=== PATIENT | female | born 1960 | race Caucasian/White ===

== ENCOUNTER 2024-06-12 11:45 | Emergency (ER) | payer OTHER ==
[2024-06-12 12:50] LABS: BASOPHILS PERCENT AUTO 0.1 % (0.2-1.2); HEMATOCRIT 39.9 % (33.0-47.0); HEMOGLOBIN 13.8 g/dL (12.0-16.0); IMMATURE GRAN ABSOLUTE AUTO 0.04 x10^3/uL (0.00-0.07); LYMPHOCYTES ABSOLUTE AUTO 0.3 x10^3/uL (1.0-4.8); MEAN CORPUSCULAR HEMOGLOBIN 31.2 pg (26.0-32.0); MEAN CORPUSCULAR HGB CONC 34.6 g/dL (32.0-36.0); MEAN CORPUSCULAR VOLUME 90.3 fL (78.0-93.0); MONOCYTES ABSOLUTE AUTO 0.9 x10^3/uL (0.0-0.8); MONOCYTES PERCENT AUTO 7.9 % (2.0-11.0); NEUTROPHILS ABSOLUTE AUTO 9.6 x10^3/uL (1.8-7.7); NEUTROPHILS PERCENT AUTO 88.6 % (50.0-80.0); PLATELET COUNT,PLT 143 x10^3/uL (130-400); RED BLOOD CELL COUNT 4.42 x10^6/uL (4.00-5.50); WHITE BLOOD CELL COUNT,WBC 10.8 x10^3/uL (4.0-10.0)
[2024-06-12 13:06] LABS: A/G RATIO 0.86; ALANINE AMINOTRANSFERASE,ALT 47 U/L (14-59); ALBUMIN 3.2 g/dL (3.4-5.0); ALKALINE PHOSPHATASE 99 U/L (46-116); ASPARTATE AMNIOTRANSFERASE,AST 32 U/L (15-37); BILIRUBIN TOTAL 1.4 mg/dL (0.2-1.0); BLOOD UREA NITROGEN,BUN 16 mg/dL (7-18); CALCIUM 9.3 mg/dL (8.5-10.1); CARBON DIOXIDE,CO2 24 mmol/L (21-32); CHLORIDE,CL 105 mmol/L (98-107); CREATININE 0.7 mg/dL (0.55-1.02); GLUCOSE RANDOM 124 mg/dL (70-99); POTASSIUM,K 3.2 mmol/L (3.5-5.1); PROTEIN TOTAL,TP 6.9 g/dL (6.4-8.2); SODIUM,NA 141 mmol/L (136-145)
[2024-06-12] MEDS: HYDROmorphone 1 MG/ML Syringe SUBCUT ONE (13:10)
[2024-06-12 13:12] LABS: ANION GAP 15.2 mmol/L (5-15); ESTIMATED GFR 98 mL/min (>=60)
[2024-06-12 13:15] LABS: C-REACTIVE PROTEIN 59.89 mg/dL (<=0.50)
[2024-06-12] MEDS: Take Home: Acetaminophen/HYDROcodone 325-10 MG, 5 Tab Pack PO ONE (14:25)
[2024-06-13] MEDS: Take Home: Acetaminophen/HYDROcodone 325-5 MG, 5 Tab Pack PO ONE (11:10)
== END 2024-06-12 15:50 | disposition home or self-care (01) ==
LOC: VM.ED 11:45
DX: M19.011 Primary osteoarthritis, right shoulder (principal); M54.50 Low back pain, unspecified; M84.47 Pathological fracture, ankle, foot and toes
CPT/HCPCS: 36415; 72100; 73030; 73610; 80053; 85025; 86140; 96372; 99284; A9270; J1170; 93010

== ENCOUNTER 2024-06-14 16:14 | Observation (INO) | payer OTHER ==
[2024-06-14] MEDS ORDERED: Sodium Chloride 0.9% 10 ML Syringe FLUSH PRN ×2 (16:48→19:39)
[2024-06-14] MEDS: HYDROmorphone 1 MG/ML Syringe IVPUSH ONE (17:00)
[2024-06-14] MEDS ORDERED: Zolpidem 5 MG Tab PO PRN (19:39)
[2024-06-14] MEDS ORDERED: Ondansetron 4 MG Tab.DIS PO PRN (19:39)
[2024-06-14] MEDS ORDERED: Ondansetron 4 MG/2 ML SDV IV PRN (19:39)
[2024-06-14] MEDS ORDERED: hydrOXYzine HCl 25 MG Tab PO PRN (23:18)
[2024-06-15] MEDS: hydrOXYzine HCl 25 MG Tab PO PRN (00:24)
[2024-06-15] MEDS: Acetaminophen 325 MG Tab PO PRN (09:18)
[2024-06-15] MEDS: Ketorolac 30 MG/ML SDV IM PRN (09:20)
[2024-06-15] MEDS: HYDROmorphone 1 MG/ML Syringe IVPUSH PRN (16:21)
[2024-06-15 21:11] LABS: EOSINOPHILS PERCENT AUTO 0.1 % (0.0-4.0); HEMATOCRIT 33.9 % (33.0-47.0); HEMOGLOBIN 12.2 g/dL (12.0-16.0); IMMATURE GRAN ABSOLUTE AUTO 0.18 x10^3/uL (0.00-0.07); LYMPHOCYTES ABSOLUTE AUTO 0.5 x10^3/uL (1.0-4.8); LYMPHOCYTES PERCENT AUTO 3.7 % (25.0-50.0); MEAN CORPUSCULAR VOLUME 86.3 fL (78.0-93.0); MONOCYTES ABSOLUTE AUTO 0.9 x10^3/uL (0.0-0.8); MONOCYTES PERCENT AUTO 7.3 % (2.0-11.0); NEUTROPHILS ABSOLUTE AUTO 11.3 x10^3/uL (1.8-7.7); NEUTROPHILS PERCENT AUTO 87.5 % (50.0-80.0); RED BLOOD CELL COUNT 3.93 x10^6/uL (4.00-5.50); WHITE BLOOD CELL COUNT,WBC 12.9 x10^3/uL (4.0-10.0)
[2024-06-15 21:20] LABS: PLATELET COUNT,PLT 99 x10^3/uL (130-400)
[2024-06-15 21:35] LABS: CALCIUM 8.9 mg/dL (8.5-10.1); EST CRCL DRUG DOSING (CG) 62.96 mL/min
[2024-06-15 21:36] LABS: ANION GAP 10.3 mmol/L (5-15); POTASSIUM,K 2.3 mmol/L (3.5-5.1)
[2024-06-15] MEDS: Baclofen 10 MG Tab PO SCH (21:38)
[2024-06-15 21:44] LABS: CREATININE 0.8 mg/dL (0.55-1.02)
[2024-06-15 21:46] LABS: C-REACTIVE PROTEIN 31.81 mg/dL (<=0.50)
[2024-06-15] MEDS: Potassium Chloride 20 MEQ Tab.ER PO ONE (22:13)
[2024-06-15] MEDS: Potassium Chloride Riders 20 MEQ in Premix Bag 1 BAG IV SCH (22:20)
[2024-06-15] MEDS: Clindamycin Phosphate in D5W 600 MG in Premix Bag 1 BAG IV SCH (22:21)
[2024-06-16 06:49] LABS: BASOPHILS PERCENT AUTO 0.1 % (0.2-1.2); EOSINOPHILS PERCENT AUTO 0.1 % (0.0-4.0); HEMATOCRIT 33.6 % (33.0-47.0); HEMOGLOBIN 11.9 g/dL (12.0-16.0); IMMATURE GRAN ABSOLUTE AUTO 0.28 x10^3/uL (0.00-0.07); LYMPHOCYTES ABSOLUTE AUTO 0.7 x10^3/uL (1.0-4.8); LYMPHOCYTES PERCENT AUTO 4.8 % (25.0-50.0); MEAN CORPUSCULAR HEMOGLOBIN 30.6 pg (26.0-32.0); MEAN CORPUSCULAR HGB CONC 35.4 g/dL (32.0-36.0); MEAN CORPUSCULAR VOLUME 86.4 fL (78.0-93.0); MONOCYTES ABSOLUTE AUTO 0.9 x10^3/uL (0.0-0.8); MONOCYTES PERCENT AUTO 6.7 % (2.0-11.0); NEUTROPHILS ABSOLUTE AUTO 12.2 x10^3/uL (1.8-7.7); NEUTROPHILS PERCENT AUTO 86.3 % (50.0-80.0); PLATELET COUNT,PLT 105 x10^3/uL (130-400); RED BLOOD CELL COUNT 3.89 x10^6/uL (4.00-5.50); WHITE BLOOD CELL COUNT,WBC 14.1 x10^3/uL (4.0-10.0)
[2024-06-16 07:03] LABS: CALCIUM 8.9 mg/dL (8.5-10.1); CREATININE 0.7 mg/dL (0.55-1.02); EST CRCL DRUG DOSING (CG) 71.96 mL/min
[2024-06-16 07:16] LABS: C-REACTIVE PROTEIN 31.54 mg/dL (<=0.50)
== END 2024-06-16 18:45 | disposition short-term general hospital (02) ==
LOC: VM.ED 16:14 → VM.MS 19:19
PROVIDERS: ADMIT Nurse Practitioner Family; ATTEND Nurse Practitioner Family
DX: G89.29 Other chronic pain (principal); M54.9 Dorsalgia, unspecified; M25.552 Pain in left hip; M25.511 Pain in right shoulder; L03.116 Cellulitis of left lower limb; F17.210 Nicotine dependence, cigarettes, uncomplicated
CPT/HCPCS: 36415; 72170; 80048; 83605; 83880; 84145; 85025; 86140; 96365; 96366; 96372; 96375; 96376; 99284; A9270; G0378; J1170; J1885; J3480; J3490; 96374; 99223; 99233; 99239

== ENCOUNTER 2024-07-08 16:37 | Emergency (ER) | payer OTHER ==
[2024-07-08 17:24] LABS: LACTIC ACID 0.7 mmol/L (0.4-2.0)
[2024-07-08] MEDS: Iopamidol 755 Mg/ML 100 ML Bottle IVPUSH ONE (17:51)
[2024-07-08 19:02] LABS: APPEARANCE,URINE SLIGHTLY CLOUDY (CLEAR); BACTERIA,URINE OCCASIONAL /HPF (NOT SEEN); BILIRUBIN,URINE NEGATIVE (NEGATIVE); COLOR,URINE YELLOW (YELLOW); GLUCOSE,URINE NEGATIVE (NEGATIVE); KETONES,URINE NEGATIVE (NEGATIVE); LEUKOCYTE ESTERASE,URINE NEGATIVE (NEGATIVE); MUCUS,URINE OCCASIONAL /LPF (NOT SEEN); NITRITE,URINE NEGATIVE (NEGATIVE); OCCULT BLOOD,URINE MODERATE (NEGATIVE); PROTEIN,URINE 100 mg/dL (NEGATIVE); SQUAMOUS EPITHELIAL CELLS,UR FEW /HPF (NOT SEEN); UROBILINOGEN,URINE 0.2 EU/dL (0.2); WBC,URINE 0-5 /HPF (NOT SEEN)
[2024-07-08] MEDS: Furosemide 20 MG/2 ML VIAL IV ONE (22:51)
== END 2024-07-08 21:03 | disposition short-term general hospital (02) ==
LOC: VM.ED 16:37
DX: I50.9 Heart failure, unspecified (principal); R79.1 Abnormal coagulation profile; R79.89 Other specified abnormal findings of blood chemistry; Z79.899 Other long term (current) drug therapy; Z79.2 Long term (current) use of antibiotics; Z79.891 Long term (current) use of opiate analgesic
CPT/HCPCS: 71275; 81001; 83605; 83880; 84484; 86850; 86900; 86901; 93005; 93010; 96374; 99284; 99285-25; J1940; Q9967

== ENCOUNTER 2024-09-08 17:42 | Emergency (ER) | payer OTHER ==
[2024-09-08 18:28] LABS: BASOPHILS PERCENT AUTO 0.8 % (0.2-1.2); EOSINOPHILS ABSOLUTE AUTO 0.1 x10^3/uL (0.0-0.5); EOSINOPHILS PERCENT AUTO 2.7 % (0.0-4.0); HEMATOCRIT 31.7 % (33.0-47.0); HEMOGLOBIN 9.9 g/dL (12.0-16.0); IMMATURE GRAN ABSOLUTE AUTO 0.01 x10^3/uL (0.00-0.07); LYMPHOCYTES ABSOLUTE AUTO 0.8 x10^3/uL (1.0-4.8); LYMPHOCYTES PERCENT AUTO 16.3 % (25.0-50.0); MEAN CORPUSCULAR HEMOGLOBIN 22.7 pg (26.0-32.0); MEAN CORPUSCULAR HGB CONC 31.2 g/dL (32.0-36.0); MEAN CORPUSCULAR VOLUME 72.5 fL (78.0-93.0); NEUTROPHILS ABSOLUTE AUTO 2.9 x10^3/uL (1.8-7.7); PLATELET COUNT,PLT 330 x10^3/uL (130-400); RED BLOOD CELL COUNT 4.37 x10^6/uL (4.00-5.50); WHITE BLOOD CELL COUNT,WBC 4.8 x10^3/uL (4.0-10.0)
[2024-09-08 18:41] LABS: INR 1.2 (0.9-1.1); PROTHROMBIN TIME 11.6 SEC (8.9-11.5); PTT,PARTIAL THROMBOPLSTIN TIME 38.7 SEC (21.9-33.8)
[2024-09-08 18:48] LABS: LACTIC ACID 0.9 mmol/L (0.4-2.0)
[2024-09-08 18:53] LABS: AMPHETAMINES SCREEN, URINE NEGATIVE (NEGATIVE); BARBITURATE SCREEN,URINE NEGATIVE (NEGATIVE); BENZODIAZEPINES SCREEN,URINE NEGATIVE (NEGATIVE); COCAINE METABOLITES,URINE NEGATIVE (NEGATIVE); METHADONE SCREEN, URINE NEGATIVE (NEGATIVE); METHAMPHETAMINE SCREEN, URINE NEGATIVE (NEGATIVE); OXYCODONE SCREEN,URINE NEGATIVE (NEGATIVE); PCP SCREEN,URINE NEGATIVE (NEGATIVE); THC SCREEN,URINE 50 NG/ML NEGATIVE (NEGATIVE)
[2024-09-08 18:54] LABS: BUPRENORPHINE SCREEN,URINE NEGATIVE (NEGATIVE)
[2024-09-08 18:55] LABS: A/G RATIO 0.54; ALANINE AMINOTRANSFERASE,ALT 65 U/L (14-59); ALBUMIN 2.7 g/dL (3.4-5.0); ALKALINE PHOSPHATASE 153 U/L (46-116); ANION GAP 12.1 mmol/L (5-15); ASPARTATE AMNIOTRANSFERASE,AST 79 U/L (15-37); BILIRUBIN TOTAL 0.6 mg/dL (0.2-1.0); BLOOD UREA NITROGEN,BUN 12 mg/dL (7-18); C-REACTIVE PROTEIN 11.67 mg/dL (<=0.50); CALCIUM 9.4 mg/dL (8.5-10.1); CARBON DIOXIDE,CO2 30 mmol/L (21-32); CHLORIDE,CL 98 mmol/L (98-107); CREATININE 0.9 mg/dL (0.55-1.02); ESTIMATED GFR 72 mL/min (>=60); ETHANOL BLOOD MEDICAL < 3 mg/dL (0-3); GLUCOSE RANDOM 120 mg/dL (70-99); MAGNESIUM 1.9 mg/dL (1.8-2.4); POTASSIUM,K 4.1 mmol/L (3.5-5.1); PROTEIN TOTAL,TP 7.7 g/dL (6.4-8.2); SODIUM,NA 136 mmol/L (136-145); TSH ULTRASENSITIVE 2.724 uIU/mL (0.358-3.74)
[2024-09-08 19:31] LABS: APPEARANCE,URINE CLEAR (CLEAR); BILIRUBIN,URINE NEGATIVE (NEGATIVE); COLOR,URINE YELLOW (YELLOW); GLUCOSE,URINE NEGATIVE (NEGATIVE); KETONES,URINE NEGATIVE (NEGATIVE); LEUKOCYTE ESTERASE,URINE NEGATIVE (NEGATIVE); NITRITE,URINE NEGATIVE (NEGATIVE); OCCULT BLOOD,URINE MODERATE (NEGATIVE); PROTEIN,URINE NEGATIVE (NEGATIVE); UROBILINOGEN,URINE 0.2 EU/dL (0.2); WBC,URINE 0-5 /HPF (NOT SEEN)
[2024-09-08 19:32] LABS: BACTERIA,URINE NOT SEEN /HPF (NOT SEEN); MUCUS,URINE NOT SEEN /LPF (NOT SEEN); SQUAMOUS EPITHELIAL CELLS,UR FEW /HPF (NOT SEEN)
== END 2024-09-08 20:45 ==
LOC: VM.ED 17:42
DX: R44.1 Visual hallucinations (principal); Z79.899 Other long term (current) drug therapy; Z88.5 Allergy status to narcotic agent
CPT/HCPCS: 70450; 71045; 80053; 80305; 80307; 81001; 82140; 83605; 83735; 84443; 85025; 85610; 85730; 86140; 99284; 99285; C1758; 36415

== ENCOUNTER 2024-11-24 01:40 | Inpatient (IN) | payer MEDICAID ==
[2024-11-24 02:02] LABS: BASOPHILS PERCENT AUTO 0.1 % (0.2-1.2); HEMATOCRIT 32.7 % (33.0-47.0); HEMOGLOBIN 9.6 g/dL (12.0-16.0); IMMATURE GRAN ABSOLUTE AUTO 0.05 x10^3/uL (0.00-0.07); LYMPHOCYTES ABSOLUTE AUTO 1.5 x10^3/uL (1.0-4.8); MEAN CORPUSCULAR HEMOGLOBIN 21.2 pg (26.0-32.0); MEAN CORPUSCULAR HGB CONC 29.4 g/dL (32.0-36.0); MEAN CORPUSCULAR VOLUME 72.2 fL (78.0-93.0); MONOCYTES ABSOLUTE AUTO 0.6 x10^3/uL (0.0-0.8); MONOCYTES PERCENT AUTO 6.3 % (2.0-11.0); NEUTROPHILS ABSOLUTE AUTO 7.9 x10^3/uL (1.8-7.7); NEUTROPHILS PERCENT AUTO 78.1 % (50.0-80.0); PLATELET COUNT,PLT 473 x10^3/uL (130-400); RED BLOOD CELL COUNT 4.53 x10^6/uL (4.00-5.50); WHITE BLOOD CELL COUNT,WBC 10.1 x10^3/uL (4.0-10.0)
[2024-11-24] MEDS: cefTRIAXone 2 GM Vial IVPUSH ONE (02:10)
[2024-11-24] MEDS: Lactated Ringers 1,000 ML IV ONE (02:18)
[2024-11-24 02:19] LABS: LACTIC ACID 1.9 mmol/L (0.4-2.0)
[2024-11-24 02:23] LABS: A/G RATIO 0.35; ALANINE AMINOTRANSFERASE,ALT 15 U/L (14-59); ALBUMIN 1.7 g/dL (3.4-5.0); ALKALINE PHOSPHATASE 193 U/L (46-116); ASPARTATE AMNIOTRANSFERASE,AST 41 U/L (15-37); BILIRUBIN TOTAL 0.9 mg/dL (0.2-1.0); BLOOD UREA NITROGEN,BUN 40 mg/dL (7-18); C-REACTIVE PROTEIN 20.88 mg/dL (<=0.50); CALCIUM 8.7 mg/dL (8.5-10.1); CARBON DIOXIDE,CO2 30 mmol/L (21-32); CHLORIDE,CL 119 mmol/L (98-107); CREATINE KINASE,CK 12 U/L (26-192); CREATININE 1.6 mg/dL (0.55-1.02); GLUCOSE RANDOM 126 mg/dL (70-99); POTASSIUM,K 3.6 mmol/L (3.5-5.1); PRO B-TYPE NATRIUR PEPT,BNPPRO 20699 pg/mL (<=125); PROTEIN TOTAL,TP 6.5 g/dL (6.4-8.2); SODIUM,NA 158 mmol/L (136-145)
[2024-11-24 02:24] LABS: ANION GAP 12.6 mmol/L (5-15); ESTIMATED GFR 36 mL/min (>=60)
[2024-11-24] MEDS: Azithromycin 500 MG in Sodium Chloride 0.9% 250 ML IV ONE (04:00)
[2024-11-24] MEDS ORDERED: Bisacodyl 5 MG Tab PO PRN (05:26)
[2024-11-24] MEDS ORDERED: Baclofen 10 MG Tab PO PRN (05:26)
[2024-11-24] MEDS ORDERED: Magnesium Hydroxide 400 MG/5 ML Susp 30 ML Cup PO PRN (05:26)
[2024-11-24] MEDS ORDERED: Albuterol/Ipratropium 3.0-0.5 MG/3 ML Neb Soln NEB PRN ×2 (05:26→06:30)
[2024-11-24] MEDS ORDERED: Ondansetron 4 MG Tab.DIS PO PRN (05:43)
[2024-11-24 05:44] LABS: APPEARANCE,URINE SLIGHTLY CLOUDY (CLEAR); BILIRUBIN,URINE NEGATIVE (NEGATIVE); COLOR,URINE YELLOW (YELLOW); GLUCOSE,URINE NEGATIVE (NEGATIVE); KETONES,URINE NEGATIVE (NEGATIVE); LEUKOCYTE ESTERASE,URINE TRACE (NEGATIVE); NITRITE,URINE NEGATIVE (NEGATIVE); OCCULT BLOOD,URINE NEGATIVE (NEGATIVE); PH,URINE 5.5 (5.0-8.0); PROTEIN,URINE 30 mg/dL (NEGATIVE)
[2024-11-24 05:49] LABS: AMORPHOUS SEDIMENT,URINE FEW; BACTERIA,URINE MANY /HPF (NOT SEEN); MUCUS,URINE FEW /LPF (NOT SEEN); RBC,URINE 0-5 /HPF (NOT SEEN); SQUAMOUS EPITHELIAL CELLS,UR FEW /HPF (NOT SEEN)
[2024-11-24] MEDS: Albuterol/Ipratropium 3.0-0.5 MG/3 ML Neb Soln NEB SCH (07:18)
[2024-11-24 07:25] LABS: CALCIUM 8.3 mg/dL (8.5-10.1); CREATININE 1.6 mg/dL (0.55-1.02); EST CRCL DRUG DOSING (CG) 32.8 mL/min; POTASSIUM,K 3.6 mmol/L (3.5-5.1)
[2024-11-24 07:30] LABS: ANION GAP 13.6 mmol/L (5-15)
[2024-11-24] MEDS: Acetaminophen 325 MG Tab PO PRN (07:47)
[2024-11-24] MEDS: Pantoprazole 40 MG Tab.CR PO SCH (07:49)
[2024-11-24] MEDS ORDERED: Lactated Ringers 1,000 ML IV SCH (08:15)
[2024-11-24] MEDS: Levofloxacin/Dextrose 5%-Water 150 ML IV ONE (09:09)
[2024-11-24] MEDS: Enoxaparin 40 MG/0.4 ML Syringe SUBCUT SCH (09:18)
[2024-11-24] MEDS: Lidocaine 4% Patch TOP SCH (09:18)
[2024-11-24] MEDS: busPIRone 5 MG Tab PO SCH (09:19)
[2024-11-24] MEDS: Sertraline 50 MG Tab PO SCH (09:20)
[2024-11-24] MEDS: Sodium Chloride 0.45% 1,000 ML IV SCH (09:21)
[2024-11-24] MEDS: Oseltamivir 75 MG Cap PO SCH (09:21)
[2024-11-24] MEDS: Ascorbic Acid 500 MG Tab PO SCH (09:52)
[2024-11-24] MEDS: Multivitamin Tab PO SCH (09:52)
[2024-11-24] MEDS: Ferrous Sulfate 325 MG Tab PO SCH (09:52)
[2024-11-24] MEDS: Levofloxacin/Dextrose 5%-Water 750 MG in Premix Bag 1 BAG IV SCH (09:54)
[2024-11-24] MEDS ORDERED: VANCOmycin 2 GM/400 ML 2 GM in Premix Bag 1 BAG IV ONE (20:15)
[2024-11-24 20:23] LABS: CALCIUM 7.9 mg/dL (8.5-10.1); EST CRCL DRUG DOSING (CG) 26.24 mL/min; POTASSIUM,K 3.8 mmol/L (3.5-5.1)
[2024-11-24 20:24] LABS: ANION GAP 12.8 mmol/L (5-15)
[2024-11-24] MEDS ORDERED: Acetaminophen 650 MG Supp RECTAL PRN (20:41)
[2024-11-24] MEDS: VANCOmycin 1.25 GM/250 ML 250 ML IV ONE (20:58)
[2024-11-24] MEDS: Albuterol 0.083% 2.5 MG/3 ML Neb Soln NEB PRN (20:58)
[2024-11-24] MEDS: Dextrose 5% in Water 1,000 ML IV SCH (21:57)
[2024-11-25 07:01] LABS: BASOPHILS PERCENT AUTO 0.1 % (0.2-1.2); HEMATOCRIT 27.8 % (33.0-47.0); HEMOGLOBIN 8.2 g/dL (12.0-16.0); IMMATURE GRAN ABSOLUTE AUTO 0.02 x10^3/uL (0.00-0.07); LYMPHOCYTES ABSOLUTE AUTO 1.3 x10^3/uL (1.0-4.8); LYMPHOCYTES PERCENT AUTO 17.8 % (25.0-50.0); MEAN CORPUSCULAR HEMOGLOBIN 21.5 pg (26.0-32.0); MEAN CORPUSCULAR HGB CONC 29.5 g/dL (32.0-36.0); MEAN CORPUSCULAR VOLUME 72.8 fL (78.0-93.0); MONOCYTES ABSOLUTE AUTO 0.3 x10^3/uL (0.0-0.8); MONOCYTES PERCENT AUTO 4.2 % (2.0-11.0); NEUTROPHILS ABSOLUTE AUTO 5.5 x10^3/uL (1.8-7.7); NEUTROPHILS PERCENT AUTO 77.6 % (50.0-80.0); PLATELET COUNT,PLT 331 x10^3/uL (130-400); RED BLOOD CELL COUNT 3.82 x10^6/uL (4.00-5.50); WHITE BLOOD CELL COUNT,WBC 7.1 x10^3/uL (4.0-10.0)
[2024-11-25 07:24] LABS: A/G RATIO 0.33; ALBUMIN 1.4 g/dL (3.4-5.0); BILIRUBIN TOTAL 0.7 mg/dL (0.2-1.0); C-REACTIVE PROTEIN 19.17 mg/dL (<=0.50); CALCIUM 7.8 mg/dL (8.5-10.1); CREATININE 1.8 mg/dL (0.55-1.02); EST CRCL DRUG DOSING (CG) 29.16 mL/min; PROTEIN TOTAL,TP 5.6 g/dL (6.4-8.2)
[2024-11-25] MEDS: Potassium Chloride Riders 10 MEQ in Premix Bag 1 BAG IV SCH (08:01)
[2024-11-25] MEDS: Furosemide 40 MG/4 ML VIAL IV ONE (08:42)
[2024-11-25] MEDS: cefTRIAXone 1 GM Vial IVPUSH SCH (09:22)
[2024-11-25] MEDS: Azithromycin 250 MG Tab PO SCH (09:55)
[2024-11-25] MEDS: D5%-0.9% NaCl w/ KCl 40 meq 1,000 ML IV SCH (10:20)
[2024-11-25] MEDS: Potassium Bicarbonate 25 MEQ Tab.EFF PO SCH (13:47)
[2024-11-25] MEDS: Potassium Chloride 20 MEQ Tab.ER PO SCH (14:47)
[2024-11-25] MEDS: Furosemide 20 MG/2 ML VIAL IV SCH (18:04)
[2024-11-25] MEDS: VANCOmycin 1 GM in Sodium Chloride 0.9% 250 ML IV SCH (20:27)
[2024-11-26 07:02] LABS: BASOPHILS PERCENT AUTO 0.1 % (0.2-1.2); HEMATOCRIT 28.2 % (33.0-47.0); HEMOGLOBIN 8.2 g/dL (12.0-16.0); IMMATURE GRAN ABSOLUTE AUTO 0.03 x10^3/uL (0.00-0.07); LYMPHOCYTES ABSOLUTE AUTO 1.5 x10^3/uL (1.0-4.8); LYMPHOCYTES PERCENT AUTO 20.2 % (25.0-50.0); MEAN CORPUSCULAR HEMOGLOBIN 21.5 pg (26.0-32.0); MEAN CORPUSCULAR HGB CONC 29.1 g/dL (32.0-36.0); MEAN CORPUSCULAR VOLUME 73.8 fL (78.0-93.0); MONOCYTES ABSOLUTE AUTO 0.3 x10^3/uL (0.0-0.8); MONOCYTES PERCENT AUTO 3.4 % (2.0-11.0); NEUTROPHILS ABSOLUTE AUTO 5.5 x10^3/uL (1.8-7.7); NEUTROPHILS PERCENT AUTO 75.9 % (50.0-80.0); RED BLOOD CELL COUNT 3.82 x10^6/uL (4.00-5.50); WHITE BLOOD CELL COUNT,WBC 7.3 x10^3/uL (4.0-10.0)
[2024-11-26 07:12] LABS: PLATELET COUNT,PLT 302 x10^3/uL (130-400)
[2024-11-26 07:27] LABS: A/G RATIO 0.33; ALBUMIN 1.4 g/dL (3.4-5.0); BILIRUBIN TOTAL 0.6 mg/dL (0.2-1.0); CALCIUM 7.9 mg/dL (8.5-10.1); CREATININE 1.2 mg/dL (0.55-1.02); EST CRCL DRUG DOSING (CG) 43.74 mL/min; POTASSIUM,K 4.9 mmol/L (3.5-5.1); PROTEIN TOTAL,TP 5.6 g/dL (6.4-8.2)
[2024-11-26 07:34] LABS: ANION GAP 12.9 mmol/L (5-15)
[2024-11-26] MEDS: Chlorthalidone 25 MG Tab PO SCH (09:16)
[2024-11-26] MEDS: Zinc Sulfate 220 MG Cap PO SCH (17:02)
[2024-11-26] MEDS: VANCOmycin 1 GM in Sodium Chloride 0.9% 250 ML IV SCH (20:39)
[2024-11-27 11:01] LABS: HEMATOCRIT 29.9 % (33.0-47.0); HEMOGLOBIN 8.8 g/dL (12.0-16.0); IMMATURE GRAN ABSOLUTE AUTO 0.02 x10^3/uL (0.00-0.07); LYMPHOCYTES ABSOLUTE AUTO 1.6 x10^3/uL (1.0-4.8); LYMPHOCYTES PERCENT AUTO 16.9 % (25.0-50.0); MEAN CORPUSCULAR HEMOGLOBIN 21.7 pg (26.0-32.0); MEAN CORPUSCULAR HGB CONC 29.4 g/dL (32.0-36.0); MEAN CORPUSCULAR VOLUME 73.6 fL (78.0-93.0); MONOCYTES ABSOLUTE AUTO 0.3 x10^3/uL (0.0-0.8); MONOCYTES PERCENT AUTO 3.2 % (2.0-11.0); NEUTROPHILS ABSOLUTE AUTO 7.7 x10^3/uL (1.8-7.7); NEUTROPHILS PERCENT AUTO 79.7 % (50.0-80.0); PLATELET COUNT,PLT 257 x10^3/uL (130-400); RED BLOOD CELL COUNT 4.06 x10^6/uL (4.00-5.50); WHITE BLOOD CELL COUNT,WBC 9.7 x10^3/uL (4.0-10.0)
[2024-11-27 11:07] LABS: HCO3 VENOUS,POC 22 mmol/L (22-29); O2 SATURATION VENOUS,POC 96 %; PCO2 VENOUS,POC 23 mmHg (41-51); PH VENOUS,POC 7.59 pH (7.32-7.43); PO2 VENOUS,POC 67 mmHg
[2024-11-27 11:17] LABS: A/G RATIO 0.34; ALBUMIN 1.5 g/dL (3.4-5.0); BILIRUBIN TOTAL 0.9 mg/dL (0.2-1.0); CALCIUM 8.4 mg/dL (8.5-10.1); EST CRCL DRUG DOSING (CG) 52.49 mL/min; POTASSIUM,K 3.8 mmol/L (3.5-5.1); PROTEIN TOTAL,TP 5.9 g/dL (6.4-8.2)
[2024-11-27 11:18] LABS: ANION GAP 12.8 mmol/L (5-15)
[2024-11-27] MEDS: Sodium Chloride 0.9% 10 ML Syringe FLUSH PRN (11:36)
[2024-11-27] MEDS: Sodium Chloride 0.45% 1,000 ML IV SCH (11:41)
== END 2024-11-27 13:25 | disposition short-term general hospital (02) | DRG 871 ==
LOC: VM.ED 01:40 → VM.MS 03:03
PROVIDERS: ADMIT Family Medicine; ATTEND Family Medicine
PROC: 3E03329 Introduction of Other Anti-infective into Peripheral Vein, Percutaneous Approach (ICD-10-PCS; principal; 2024-11-24)
PROC: 0T9B70Z Drainage of Bladder with Drainage Device, Via Natural or Artificial Opening (ICD-10-PCS; 2024-11-25)
DX: J18.9 Pneumonia, unspecified organism (principal); A41.01 Sepsis due to Methicillin susceptible Staphylococcus aureus; E43 Unspecified severe protein-calorie malnutrition; G93.41 Metabolic encephalopathy; I50.33 Acute on chronic diastolic (congestive) heart failure; Z88.5 Allergy status to narcotic agent; J10.08 Influenza due to other identified influenza virus with other specified pneumonia; J15.211 Pneumonia due to Methicillin susceptible Staphylococcus aureus; J96.01 Acute respiratory failure with hypoxia; I21.4 Non-ST elevation (NSTEMI) myocardial infarction; E87.0 Hyperosmolality and hypernatremia; N17.9 Acute kidney failure, unspecified; N39.0 Urinary tract infection, site not specified; R65.20 Severe sepsis without septic shock; R79.89 Other specified abnormal findings of blood chemistry; E86.0 Dehydration; N18.9 Chronic kidney disease, unspecified; I35.1 Nonrheumatic aortic (valve) insufficiency; M19.90 Unspecified osteoarthritis, unspecified site; F41.9 Anxiety disorder, unspecified; M25.571 Pain in right ankle and joints of right foot; G89.29 Other chronic pain; D63.1 Anemia in chronic kidney disease; K25.9 Gastric ulcer, unspecified as acute or chronic, without hemorrhage or perforation; K74.60 Unspecified cirrhosis of liver; R23.3 Spontaneous ecchymoses; M19.071 Primary osteoarthritis, right ankle and foot; M19.072 Primary osteoarthritis, left ankle and foot; E87.6 Hypokalemia; L89.152 Pressure ulcer of sacral region, stage 2; B96.20 Unspecified Escherichia coli [E. coli] as the cause of diseases classified elsewhere; Z88.8 Allergy status to other drugs, medicaments and biological substances; Z79.899 Other long term (current) drug therapy; Z68.23 Body mass index [BMI] 23.0-23.9, adult
CPT/HCPCS: 36415; 70450; 71045; 71250; 80048; 80053; 80202; 81001; 82140; 82550; 82803; 83605; 83735; 83880; 84145; 84484; 85025; 86140; 87040; 87070; 87077; 87086; 87088; 87147; 87186; 93005; 93010; 94640; 94760; 96374; 99223; 99223-GT; 99284; 99285-25; A9270-GY; J0456; J0696; J1650; J1940; J1956; J3372; J3480; J7030; J7050; J7060; J7120; J7613-GY; J7620-GY

== ENCOUNTER 2025-08-22 15:05 | Inpatient (IN) | payer MEDICAID ==
[2025-08-22 18:45] LABS: LACTIC ACID 0.8 mmol/L (0.4-2.0)
[2025-08-22 18:54] LABS: A/G RATIO 0.43; ALANINE AMINOTRANSFERASE,ALT 13 U/L (14-59); ASPARTATE AMNIOTRANSFERASE,AST 23 U/L (15-37); BILIRUBIN TOTAL 0.4 mg/dL (0.2-1.0); BLOOD UREA NITROGEN,BUN 19 mg/dL (7-18); CARBON DIOXIDE,CO2 27 mmol/L (21-32); CHLORIDE,CL 106 mmol/L (98-107); CREATININE 0.6 mg/dL (0.55-1.02); ESTIMATED GFR 101 mL/min (>=60); GLUCOSE RANDOM 91 mg/dL (70-99); POTASSIUM,K 3.6 mmol/L (3.5-5.1); PROTEIN TOTAL,TP 5.7 g/dL (6.4-8.2); SODIUM,NA 142 mmol/L (136-145)
[2025-08-22] MEDS: VANCOmycin 1.25 GM/250 ML 1.25 GM in Premix Bag 1 BAG IV ONE (19:27)
[2025-08-22] MEDS: Iopamidol 612 MG/ML 100 ML Bottle IVPUSH ONE (19:37)
[2025-08-22] MEDS ORDERED: Ondansetron 4 MG/2 ML SDV IV PRN (20:31)
[2025-08-22] MEDS ORDERED: Sennosides/Docusate Sodium 50-8.6 MG Tab PO PRN (20:46)
[2025-08-22] MEDS ORDERED: Psyllium Husk (3 in 1 Daily Fiber) 0.4 GM Cap PO PRN (20:46)
[2025-08-22] MEDS: Calcium Carbonate/Vitamin D3 1250 MG-5 MCG Tab PO SCH (21:52)
[2025-08-23 06:47] LABS: BASOPHILS ABSOLUTE AUTO 0.1 x10^3/uL (0.0-0.2); BASOPHILS PERCENT AUTO 0.7 % (0.2-1.2); EOSINOPHILS ABSOLUTE AUTO 0.2 x10^3/uL (0.0-0.5); EOSINOPHILS PERCENT AUTO 2.1 % (0.0-4.0); IMMATURE GRAN ABSOLUTE AUTO 0.13 x10^3/uL (0.00-0.07); IMMATURE GRAN PERCENT AUTO 1.80 % (0.00-0.43); LYMPHOCYTES ABSOLUTE AUTO 0.7 x10^3/uL (1.0-4.8); LYMPHOCYTES PERCENT AUTO 8.9 % (25.0-50.0); MONOCYTES ABSOLUTE AUTO 0.7 x10^3/uL (0.0-0.8); MONOCYTES PERCENT AUTO 9.2 % (2.0-11.0); NEUTROPHILS ABSOLUTE AUTO 5.6 x10^3/uL (1.8-7.7); NEUTROPHILS PERCENT AUTO 77.3 % (50.0-80.0); PLATELET COUNT,PLT 310 x10^3/uL (130-400); RED BLOOD CELL COUNT 2.92 x10^6/uL (4.00-5.50); WHITE BLOOD CELL COUNT,WBC 7.3 x10^3/uL (4.0-10.0)
[2025-08-23 07:07] LABS: BLOOD UREA NITROGEN,BUN 16.0 mg/dL (7-18); CARBON DIOXIDE,CO2 25.0 mmol/L (21-32); CHLORIDE,CL 108.0 mmol/L (98-107); CREATININE 0.5 mg/dL (0.55-1.02); EST CRCL DRUG DOSING (CG) 95.27 mL/min; GLUCOSE RANDOM 82.0 mg/dL (70-99); POTASSIUM,K 3.3 mmol/L (3.5-5.1); SODIUM,NA 144.0 mmol/L (136-145); VANCOMYCIN RANDOM 12.3 ug/mL (5.0-10.0)
[2025-08-23 07:08] LABS: ESTIMATED GFR 105.0 mL/min (>=60)
[2025-08-23] MEDS: Potassium Chloride 10 MEQ Tab.ER PO SCH (09:48)
[2025-08-23] MEDS: Cholecalciferol (Vitamin D3) 25 MCG Tab PO SCH (09:49)
[2025-08-23] MEDS: Heparin Sodium 100 Units/ML 3 ML Syringe IVPUSH SCH ×2 (10:07→11:11)
[2025-08-23] MEDS: Sucralfate Suspension 1 GM/10 ML Cup PO SCH (10:07)
== END 2025-08-23 14:30 | disposition short-term general hospital (02) | DRG 603 ==
LOC: VM.ED 15:05 → VM.MS 19:19
PROVIDERS: ADMIT Internal Medicine; ATTEND Internal Medicine
DX: L03.113 Cellulitis of right upper limb (principal); Z88.5 Allergy status to narcotic agent; L02.413 Cutaneous abscess of right upper limb; I50.22 Chronic systolic (congestive) heart failure; M19.90 Unspecified osteoarthritis, unspecified site; F41.9 Anxiety disorder, unspecified; D64.9 Anemia, unspecified; E87.6 Hypokalemia; E66.9 Obesity, unspecified; E55.9 Vitamin D deficiency, unspecified; Z96.649 Presence of unspecified artificial hip joint; Z88.8 Allergy status to other drugs, medicaments and biological substances; Z68.30 Body mass index [BMI] 30.0-30.9, adult; Z98.890 Other specified postprocedural states; Z79.899 Other long term (current) drug therapy
CPT/HCPCS: 36415; 73201-RT; 80048; 80053; 80202; 83605; 83735; 85025; 87040; 87070; 99223-GT; 99284; A9270-GY; J0690; J1642; J3373; J3375; J7050; Q3014; Q9967